=== PATIENT | female | born 1955 | race Caucasian/White ===

== ENCOUNTER 2017-02-27 04:10 | Emergency (ER) | payer SELFPAY ==
[2017-02-27 04:29] VITALS: TEMP 97
[2017-02-27] MEDS ORDERED: IPRATROPIUM/ALBUTEROL 3 ML VIAL NEB ONE (04:30)
[2017-02-27] MEDS ORDERED: methylPREDNISolone SODIUM SUC 125 MG/2 ML VIAL IM ONE (04:50)
--- NOTE | 2017-02-27 04:54 | ED.PDOC ---
History of Present Illness - General Chief Complaint: Respiratory Problem Stated Complaint: short of breath Time Seen by Provider: 02/27/17 04:43 Source: patient, RN notes reviewed, Vital Signs reviewed Exam Limitations: no limitations - History of Present Illness Initial Comments: Patient reports that this morning she woke up feeling like she was smothering. She was SOB so she came in to be evaluated. Her allergies have been bad recently and when this happens she does get issues with asthma but normally only 2-3 days out of the year. She has already received a neb treatment and reports she is feeling better. Her O2 sat has come up to 98%. Timing/Duration: 1 hour Severity: moderate Activities at Onset: sleep Possible Cause: occasional episodes, allergen exposure Improving Factors: medication Worsening Factors: nothing Associated Symptoms: denies symptoms Respiratory Risk Factors: pollen Allergies/Adverse Reactions: Allergies Morphine Allergy (Verified 02/27/17 04:36) Home Medications: Ambulatory Orders Albuterol Inhaler [Ventolin Hfa Inhaler] 1 puff INH Q4HR PRN #1 inh 02/27/17 Levothyroxine Sodium 02/27/17 Review of Systems - Review of Systems Constitutional: States: no symptoms reported. Denies: chills, diaphoresis, fever, malaise, weakness EENTM: States: nose congestion - due to allergies Respiratory: States: short of breath. Denies: cough, orthopnea, stridor, wheezing Cardiology: States: no symptoms reported. Denies: chest pain, edema, palpitations, syncope Gastrointestinal/Abdominal: States: no symptoms reported Genitourinary: States: no symptoms reported Musculoskeletal: States: no symptoms reported Skin: States: no symptoms reported Neurological: States: no symptoms reported Endocrine: States: no symptoms reported Hematologic/Lymphatic: States: no symptoms reported Past Medical History (General) - Patient Medical History Hx Asthma: Yes - periodically Hx Thyroid Disease: Yes Surgical History: Hysterectomy - Vaccination History Hx Influenza Vaccination: No Family Medical History - Family History Mother Family History: Unknown Physical Exam - Physical Exam General Appearance: Alert, Comfortable, No apparent distress, Well Developed, Well Groomed, Well Hydrated, Well Nourished Neck: non-tender, full range of motion, supple, normal inspection Respiratory: chest non-tender, lungs clear, normal breath sounds, no respiratory distress, no accessory muscle use Cardiovascular/Chest: regular rate, rhythm, no edema, no gallop, no JVD, no murmur Extremity: normal range of motion, non-tender, normal inspection, no pedal edema Neurologic: no motor/sensory deficits, alert, normal mood/affect, oriented x 3 Skin Exam: normal color, warm/dry Lymphatic: no adenopathy Comments: Vital Signs - 8 hr 02/27/17 02/27/17 02/27/17 04:25 04:30 04:41 Temperature 97.0 F L Pulse Rate 65 Pulse Rate [ 68 Right] Respiratory 18 18 16 Rate Blood Pressure 113/72 [Left Arm] O2 Sat by Pulse 94 L 98 Oximetry Progress - Progress Progress: 02/27/17 05:24 Patient reports that she is feeling much better. Still having some slight SOB so will get EKG. - EKG/XRAY/CT EKG: Sinus, no ST T wave changes Comments: rate: 67 bpm Departure - Departure Clinical Impression: Asthma with exacerbation Qualifiers: Asthma severity: mild intermittent Qualifier Code: (J45.21) Mild intermittent asthma with (acute) exacerbation Time of Disposition: 05:36 Disposition: Discharge to Home or Self Care Condition: Good Departure Forms: ED Discharge - Pt. Copy, Patient Portal Self Enrollment Instructions: DI for Asthma -- Adult Diet: resume usual diet Activity: increase activity as tolerated Referrals: Darvin Peñaloza III, MD [Primary Care Provider] - 1-2 Days Prescriptions: Albuterol Inhaler [Ventolin Hfa Inhaler] 1 puff INH Q4HR PRN #1 inh PRN Reason: Shortness Of Breath Home Medications: Ambulatory Orders Albuterol Inhaler [Ventolin Hfa Inhaler] 1 puff INH Q4HR PRN #1 inh 02/27/17 Levothyroxine Sodium 02/27/17
[2017-02-27 05:48] VITALS: BP 113/77; O2SAT 95
== END 2017-02-27 05:47 | disposition home or self-care (01) ==
LOC: ER 04:10
DX: J45.21 Mild intermittent asthma with (acute) exacerbation (principal); E07.9 Disorder of thyroid, unspecified; Z88.6 Allergy status to analgesic agent
CPT/HCPCS: 93005; 94640; J2930; J7620

== ENCOUNTER → 2018-05-10 | Outpatient (CLI) | payer OTHER | LOC: YCFC.O 10:26 | PROVIDERS: ATTEND Nurse Practitioner Family | DX: Z00.00 Encounter for general adult medical examination without abnormal findings (principal); E03.9 Hypothyroidism, unspecified ==